=== PATIENT | female | born 1955 ===

== ENCOUNTER 2021-08-22 06:24 | Emergency (ER) | payer MEDICARE, OTHER | END 2021-08-22 07:20 | disposition home or self-care (01) | LOC: MW.ED 06:24 | DX: H66.92 Otitis media, unspecified, left ear (principal); E78.00 Pure hypercholesterolemia, unspecified; I10 Essential (primary) hypertension; Z79.899 Other long term (current) drug therapy; Z88.8 Allergy status to other drugs, medicaments and biological substances; Z90.710 Acquired absence of both cervix and uterus | CPT/HCPCS: 99283 ==